=== PATIENT | male | born 1965 | race Caucasian/White ===

== ENCOUNTER 2023-07-18 05:53 | Day surgery (SDC) | payer BC ==
[2023-07-16 15:55] VITALS: BMI 26.6
[2023-07-18] MEDS ORDERED: PROPOFOL 40 ML ONE (07:57)
[2023-07-18] MEDS ORDERED: fentaNYL 50 mcg/mL 1 mL Vial ONE (09:10)
[2023-07-18] MEDS ORDERED: PROPOFOL 20 ML ONE ×2 (09:17→09:46)
[2023-07-18] MEDS ORDERED: PHENYLEPHRINE-NS 100 MCG/ML 10 ML SYRINGE ONE (09:50)
== END 2023-07-18 10:39 | disposition home or self-care (01) ==
LOC: CSHSDC 05:53
PROVIDERS: ATTEND Internal Medicine Gastroenterology
PROC: 0DBK8ZX Excision of Ascending Colon, Via Natural or Artificial Opening Endoscopic, Diagnostic (ICD-10-PCS; principal; 2023-07-18)
PROC: 0DB68ZX Excision of Stomach, Via Natural or Artificial Opening Endoscopic, Diagnostic (ICD-10-PCS; principal; 2023-07-18)
PROC: 0D758DZ Dilation of Esophagus with Intraluminal Device, Via Natural or Artificial Opening Endoscopic (ICD-10-PCS; principal; 2023-07-18)
DX: Z12.11 Encounter for screening for malignant neoplasm of colon (principal); K63.5 Polyp of colon; K57.30 Diverticulosis of large intestine without perforation or abscess without bleeding; K64.9 Unspecified hemorrhoids; K29.50 Unspecified chronic gastritis without bleeding; K31.A0 Gastric intestinal metaplasia, unspecified; K25.9 Gastric ulcer, unspecified as acute or chronic, without hemorrhage or perforation; I10 Essential (primary) hypertension; E78.5 Hyperlipidemia, unspecified; Z80.0 Family history of malignant neoplasm of digestive organs; Z79.899 Other long term (current) drug therapy
CPT/HCPCS: 88305; J2704; J3010